=== PATIENT | male | born 1965 | race African-American/Black ===

== ENCOUNTER 2018-02-18 08:00 | Inpatient (IN) | payer OTHER ==
[2018-02-18] MEDS ORDERED: MAGNESIUM HYDROXIDE 30ML CUP PO (09:00)
[2018-02-18] MEDS ORDERED: NACL 0.9% 3 ML SYG IV (09:00)
[2018-02-18] MEDS ORDERED: LORAZEPAM 0.5 MG TAB PO (09:00)
[2018-02-18] MEDS ORDERED: ACETAMINOPHEN 325 MG TAB PO (09:00)
[2018-02-18] MEDS ORDERED: DOCUSATE SODIUM 100 MG CAP PO (09:00)
[2018-02-18] MEDS ORDERED: ONDANSETRON 4 MG INJ IV (09:00)
[2018-02-18] MEDS ORDERED: LORAZEPAM 2 MG INJ IV (09:00)
[2018-02-18] MEDS ORDERED: ALBUTEROL 0.083% (NEB) 2.5 MG/3 ML AMP HHN (09:00)
[2018-02-18] MEDS ORDERED: HYDROCODONE/APAP (10/325) TAB PO (09:00)
[2018-02-18] MEDS ORDERED: PROMETHAZINE/CODEINE 5ML CUP PO (09:00)
[2018-02-18] MEDS ORDERED: SENNA/DOCUSATE NA (8.6MG/50MG) TAB PO (09:30)
[2018-02-18] MEDS ORDERED: GLUCOSE GEL 15 GRAM TUBE PO ×2 (09:30)
[2018-02-18] MEDS ORDERED: GLUCAGON 1 MG INJ IM (09:30)
[2018-02-18] MEDS ORDERED: GLUCOSE GEL 15 GRAM TUBE BUCCAL (09:30)
[2018-02-18] MEDS ORDERED: DEXTROSE 50% 50 ML SYRINGE IV ×2 (09:30)
[2018-02-18] MEDS: METOPROLOL (XL) 25 MG TAB PO ×2 (09:45→20:16)
[2018-02-18] MEDS: AMLODIPINE 10 MG TAB PO (09:46)
[2018-02-18] MEDS: HYDROCODONE/APAP (5/325) TAB PO (09:47)
[2018-02-18] MEDS: HYDROCHLOROTHIAZIDE 25 MG TAB PO (09:47)
[2018-02-18] MEDS: INSULIN ASPART [NOVOLOG] 3 ML PEN SC ×6 (09:53→20:31)
[2018-02-18] MEDS: SALMETEROL/FLUTICASONE 250/50 INHA INH ×2 (12:25→20:15)
[2018-02-18] MEDS: LIDOCAINE 5% PATCH TD (12:28)
[2018-02-18] MEDS: DICLOFENAC (EC) 75 MG TAB PO ×2 (12:33→20:16)
[2018-02-18 12:59] LABS: HEMOGLOBIN A1C 10.4 % (0-5.9)
[2018-02-18] MEDS: HYDROmorphONE 0.5 MG/0.5 ML SYG IV (17:42)
[2018-02-18] MEDS: INSULIN GLARGINE [LANtus] 3 ML PEN SC (20:19)
[2018-02-19] MEDS: PANTOPRAZOLE (EC) 40 MG TAB PO (05:41)
[2018-02-19] MEDS: HYDROmorphONE 0.5 MG/0.5 ML SYG IV (05:48)
[2018-02-19] MEDS: INSULIN ASPART [NOVOLOG] 3 ML PEN SC ×7 (08:05→21:11)
[2018-02-19] MEDS: SALMETEROL/FLUTICASONE 250/50 INHA INH ×2 (08:43→21:03)
[2018-02-19] MEDS: HYDROCHLOROTHIAZIDE 25 MG TAB PO (08:44)
[2018-02-19] MEDS: AMLODIPINE 10 MG TAB PO (08:45)
[2018-02-19] MEDS: DICLOFENAC (EC) 75 MG TAB PO ×2 (08:45→21:50)
[2018-02-19] MEDS: METOPROLOL (XL) 25 MG TAB PO ×2 (08:45→21:21)
[2018-02-19] MEDS: LIDOCAINE 5% PATCH TD (08:46)
[2018-02-19] MEDS: INSULIN GLARGINE [LANtus] 3 ML PEN SC (20:34)
[2018-02-20] MEDS: HYDROmorphONE 0.5 MG/0.5 ML SYG IV (03:07)
[2018-02-20] MEDS: PANTOPRAZOLE (EC) 40 MG TAB PO (05:57)
[2018-02-20 06:47] LABS: ALBUMIN 4.5 g/dl (3.3-4.9); ANION GAP 17 (8-16); BLOOD UREA NITROGEN 13 mg/dl (7-20); CALCIUM 9.8 mg/dl (8.4-10.2); CARBON DIOXIDE 31 mmol/L (21-31); CHLORIDE 98 mmol/L (97-110); CREATININE 0.84 mg/dl (0.61-1.24); GLUCOSE 270 mg/dl (70-220); PHOSPHORUS 3.6 mg/dl (2.5-4.9); POTASSIUM 3.8 mmol/L (3.5-5.1); SODIUM 142 mmol/L (135-144)
[2018-02-20] MEDS: INSULIN ASPART [NOVOLOG] 3 ML PEN SC ×4 (08:29→12:26)
[2018-02-20] MEDS: SALMETEROL/FLUTICASONE 250/50 INHA INH (08:31)
[2018-02-20] MEDS: HYDROCHLOROTHIAZIDE 25 MG TAB PO (08:32)
[2018-02-20] MEDS: METOPROLOL (XL) 25 MG TAB PO (08:34)
[2018-02-20] MEDS: AMLODIPINE 10 MG TAB PO (08:34)
[2018-02-20] MEDS: DICLOFENAC (EC) 75 MG TAB PO (08:34)
[2018-02-20] MEDS: LIDOCAINE 5% PATCH TD (08:36)
[2018-02-20] MEDS ORDERED: INSULIN GLARGINE [LANtus] 3 ML PEN SC (20:00)
== END 2018-02-20 13:00 | disposition home or self-care (01) | DRG 639 ==
LOC: PP2 02-19 19:20 → TEL 08:00
PROVIDERS: Family Medicine
DX: E11.65 Type 2 diabetes mellitus with hyperglycemia (principal); I10 Essential (primary) hypertension; G47.33 Obstructive sleep apnea (adult) (pediatric); E78.5 Hyperlipidemia, unspecified; M54.40 Lumbago with sciatica, unspecified side; Z79.4 Long term (current) use of insulin; Z87.891 Personal history of nicotine dependence
CPT/HCPCS: 80069; 82962; 83036; 84443; 94660; 97162